=== PATIENT | female | born 1955 | race Caucasian/White ===

== ENCOUNTER 2018-04-01 19:36 | Inpatient (IN) | payer BC, OTHER ==
[~2018-04-01] VITALS: Ht 153.7 cm; Wt 61.2 kg
[2018-04-01] MEDS ORDERED: MAGNESIUM HYDROXIDE 30 ML UDC PO PRN (21:00)
[2018-04-01] MEDS ORDERED: MAG HYDROX/AL HYDROX/SIMETH 30 ML UDC PO PRN (21:00)
[2018-04-01] MEDS ORDERED: LORAZEPAM 0.5 MG TABLET PO PRN (21:00)
[2018-04-01] MEDS ORDERED: ACETAMINOPHEN 325 MG TABLET PO PRN (21:00)
[2018-04-01] MEDS ORDERED: TEMAZEPAM 7.5 MG CAPSULE PO PRN (21:00)
[2018-04-01] MEDS ORDERED: FLONASE (21:30)
[2018-04-01] MEDS ORDERED: ZALE10CA28 PO (21:30)
[2018-04-01] MEDS ORDERED: GLUC-199 PO (21:30)
[2018-04-01] MEDS ORDERED: ALBU90AE IH (21:30)
[2018-04-01] MEDS ORDERED: LEVO112T5 PO (21:30)
[2018-04-01] MEDS ORDERED: CALC-903 PO (21:30)
[2018-04-01 23:50] VITALS: BP 133/95
[2018-04-02 07:34] LABS: BASOPHILS % (AUTO) 0.6 % (0.0-2.0); EOSINOPHILS % (AUTO) 0.3 % (0.0-6.0); HEMATOCRIT 44 % (33-45); HEMOGLOBIN 14.6 g/dL (11.5-14.8); LYMPHOCYTES # (AUTO) 1.5 /CMM (0.8-4.8); LYMPHOCYTES % (AUTO) 25.5 % (20.0-44.0); MEAN CORPUSCULAR HEMOGLOBIN 32 PG (26.0-33.0); MEAN CORPUSCULAR HGB CONC 33 g/dl (31.0-36.0); MEAN CORPUSCULAR VOLUME 96 fL (82-100); MONOCYTES # (AUTO) 0.4 /CMM (0.1-1.30); MONOCYTES % (AUTO) 7.5 % (2.0-12.0); NEUTROPHILS % (AUTO) 66.1 % (43.0-81.0); PLATELET COUNT (AUTO) 283 /CMM (150-450); RDW COEFFICIENT OF VARIATION 13.3 (11.5-15.0); RED BLOOD CELL COUNT(AUTO) 4.63 MIL/uL (4.0-5.2)
[2018-04-02 07:51] LABS: ALBUMIN 4.1 g/dL (3.4-5.0); BILIRUBIN,TOTAL 0.4 mg/dL (0.2-1.0); CALCIUM, SERUM 9.2 mg/dL (8.5-10.1); CREATININE 1.1 mg/dL (0.6-1.3)
[2018-04-02 08:00] VITALS: BP 142/78
[2018-04-02 16:00] VITALS: BP 150/90
[2018-04-02] MEDS: MIRTAZAPINE 15 MG TABLET PO SCH (20:22)
[2018-04-02 20:39] VITALS: BP 137/91
[2018-04-02] MEDS: ATORVASTATIN 40 MG TABLET PO SCH (21:24)
[2018-04-03 08:00] VITALS: BP 138/72
[2018-04-03 16:00] VITALS: BP 116/78
[2018-04-03 19:49] VITALS: BP 138/92
[2018-04-03] MEDS: MIRTAZAPINE 15 MG TABLET PO SCH (20:46)
[2018-04-03] MEDS: ATORVASTATIN 40 MG TABLET PO SCH (21:29)
[2018-04-04 08:00] VITALS: BP 156/75
[2018-04-04] MEDS: CALCIUM CARB 600MG /VIT D 1 EACH TABLET PO SCH (12:45)
[2018-04-04 17:16] VITALS: BP 134/86
[2018-04-04 19:56] VITALS: BP 134/76
[2018-04-04 20:00] VITALS: BP 134/76
[2018-04-04] MEDS: MIRTAZAPINE 15 MG TABLET PO SCH (20:59)
[2018-04-04] MEDS: ATORVASTATIN 40 MG TABLET PO SCH (20:59)
[2018-04-05] MEDS ORDERED: LEVOTHYROXINE SODIUM 112 MCG TABLET PO SCH (07:30)
[2018-04-05 08:00] VITALS: BP 142/86
[2018-04-05] MEDS: CALCIUM CARB 600MG /VIT D 1 EACH TABLET PO SCH (08:06)
[2018-04-05] MEDS ORDERED: FLUTICASONE PROPIONATE 16 GM BOTTLE NS SCH (09:00)
== END 2018-04-05 14:35 | disposition home or self-care (01) | DRG 885 ==
LOC: GPS 19:36
PROVIDERS: ADMIT Psychiatry & Neurology Psychosomatic Medicine; ATTEND Nurse Practitioner Acute Care
DX: F33.2 Major depressive disorder, recurrent severe without psychotic features (principal); E03.9 Hypothyroidism, unspecified; J45.909 Unspecified asthma, uncomplicated; E78.5 Hyperlipidemia, unspecified
CPT/HCPCS: 36415; 80053-TC; 80061-TC; 85025-TC; 87081-TC